=== PATIENT | female | born 1995 | race Two or more races ===

== ENCOUNTER 2025-05-23 14:17 | Outpatient (CLI) | payer OTHER, SELFPAY ==
--- OUTSIDE RECORDS SUMMARY | 2025-05-23 14:52 | XMS_ITS | Clinical Summary ---
Author Organization [facility] Address [facility] [place] [address] Care Team Providers Care Relations Mgr Name Role Phone None, Provider MD Primary Care Provider Unavaila ble None, Provider MD Unavailable Unavailable Allergies No known active allergies Medications VITAMINS 28-0.8 MG tablet Take 1 tablet by mouth daily. 06/23/2022 Active sertraline (ZOLOFT) 50 MG tablet Take 1 tablet (50 mg total) by mouth every morning. 06/23/2022 Active Active Problems Problem Noted Date Diagnosed Date care following vaginal delivery 03/03 Vacuum-assisted vaginal delivery 09/20/2022 Vomiting or nausea of 08/24/2022 Resolved Problems Problem Noted Date Diagnosed Date Resolved Date 38 weeks gestation of 03/03/2024 03/05/2024 09/18/2022 09/20/2022 Immunizations Immunization Administration Dates Next Due Tdap (Boostrix) 03/05/2024 Family History Medical History Relation Comments None Father None Mother Relation Status Comments Father Alive Mother Alive Social History Tobacco Use Types Packs/Day Years Used Date Smoking Tobacco: Former Smokeless Tobacco: Never Tobacco Cessation:Counseling Given: Not Answered Alcohol Use Standard Drinks/Week Comments Not Currently 0 (1 standard drink = 0.6 oz pur e alcohol) B1300 Health Literacy Answer Date Recor ded How often do you need to hav e someone help you when you read instructions, pamphlets, or other written material from your doctor or pharmacy? Never 03/03/2024 [facility] Utilities Answer Date Recorded In the past 12 months has e onlinetours, [facility], oil, or water Tins[employer]ly threatened to shut off services in your home? No 03/03/2024 Humiliation, Afraid, Rape, and Kick questionnair e Answer Date Recorded Within the last year, have y ou been afraid of your partner or ex-partner? No 03/03/2024 Within the last year, have y ou been humiliated or emotionally abused in other ways by your partner or ex-partner? No Within the last year, have y ou been kicked, hit, slapped, or otherwise physically hurt by your partner or ex-partner? No 03/03/2024 Within the last year, have y ou been raped or forced to have any kind of sexual activity by your partner or ex-partner? No 03/03/2024 Social Connection and Isolation Panel Answer Date Recorded In a typical week, how many times do you talk on the phone with family, friends, or neighbors? More than three times a week 03/03/2024 How often do you get togethe r with friends or relatives? More than three times a week 03/03/2024 How often do you attend chur ch or hinduism services? Never 03/03/2024 Do you belong to any clubs o r organizations such as roman catholic groups, unions, fraternal or athletic groups, or school groups? No 03/03/2024 How often do you attend meet ings of the clubs or organizations you belong to? Never 03/03/2024 Are you , , di vorced, , never , or living with a partner? Never 03/03/2024 AUDIT-C Answer Date Recorded Q1: How often do you have a drink containing alc ohol? 2-4 times a month 03/03/2024 Q2: How many drinks containi ng alcohol do you have on a typical day when you are drinking? 3 or 4 03/03/2024 Q3: How often do you have si x or more drinks on one occasion? Less than monthly 03/03/2024 Overall Financial Resource Strain (CARDIA) Answe r Date Recorded How hard is it for you to pa y for the very basics like food, housing, medical care, and heating? Not hard at all 03/03/2024 PHQ-2 Answer Date Recorded Patient Health Questionnaire-2 Score 0 03/03/2024 [facility] - Occupational Stress Questionnaire Answer Date Recorded Do you feel stress - tense, restless, nervous, or anxious, or unable to sleep at night because your mind is troubled all the time - these days? To some extent 03/03/2024 Exercise Vital Sign Answer Date Recorde d On average, how many days pe r week do you engage in moderate to strenuous exercise (like a brisk walk)? 3 days 03/03/2024 On average, how many minutes do you engage in exercise at this level? 30 min 03/03/2024 Hunger Vital Sign Answer Date Recorded Within the past 12 months, y ou worried that your food would run out before you got the money to buy more. Never true 03/03/20 24 Within the past 12 months, t he food you bought just didn't last and you didn't have money to get more. Never true 03/03/2024 PRAPARE - Transportation Answer Date Re corded In the past 12 months, has l ack of transportation kept you from medical appointments or from getting medications? No 02/22 In the past 12 months, has l ack of transportation kept you from meetings, work, or from getting things needed for daily living? No 03/03/2024 Housing Stability Vital Sign Answer Ravi e Recorded In the last 12 months, was t here a time when you were not able to pay the mortgage or rent on time? No 03/03/2024 In the past 12 months, how m any times have you moved where you were living? 3 03/03/2024 At any time in the past 12 m [facility], were you homeless or living in a custodial (including now)? No 03/03/2024 Depression Answer Date Recor ded Last EPDS Total Score 8 03/04/2024 Last EPDS Self Harm Result Unrecognized value Comments No Sex and Gender Information Value Date Recorded Sex Assigned at Not on file Legal Sex Female 4:09 PM CDT Gender Identity Not on file Sexual Orientation Bisexual 01/17/2024 8: 17 AM CDT Last Filed Vital Signs Vital Sign Reading Time Taken Comments Blood Pressure 112/74 03/05/2024 8:08 AM CDT Pulse 75 03/05/2024 8:08 AM CDT Temperature 36.3 C (97.3 F) 03/05/2024 8:08 AM CDT Respiratory Rate 16 03/05/2024 8:08 AM CDT Oxygen Saturation 100% 03/05/2024 8:08 AM CDT Inhaled Oxygen Concentration - - Weight 68 kg (150 lb) 03/03/2024 6:05 AM CDT Height 160 cm (5' 3) 03/03/2024 6:05 AM CDT Body Mass Index 26.57 03/03/2024 6:05 AM CDT Plan of Treatment Health Maintenance Due Date Last Done Comments Annual Physical 2000 Hepatitis C 2015 HPV Vaccines (1 - 3-dose SCDM series) 2024 COVID-19 Vaccine ( season) 2025 Influenza Adult (#1) 2025 06/19/2018, 05/29/2012, 04/23/2011, Additional history exists Cervical Cancer Screening Pap Smear (Age 21 to 29) Every 3 Years 09/19/2026 09/19/2023 Cervical Cancer Screening 09/19/2026 DTaP, Tdap and Td Vaccines (9 - Td or Tdap) 03/05/2034 03/05/2024, 04/17/2019, 03/10/2009, Additional history exists Hepatitis B Vaccines Completed 1997, 1997, 1997 Hepatitis A Vaccines Completed 11/24/2009, 03/10/2009, 05/07/2003 Meningococcal Vaccine Completed 04/19/2014, 008 Meningococcal B Vaccine Aged Out No l onger eligible based on patient's age to complete this topic Pneumococcal Vaccine: Pediatrics (0 to 5 Years) and At-Risk Patients (6 to 49 Years) Aged Out No longer eligible based on patient's age to complete this topic RSV Immunizations Under 20 Months Aged Out No longer eligible based on patient's age to complete this topic Insurance [employer] Advance Directives * Full Code (Latest Code Status on File) Date Activated Date Inactivated Comments 03/03/2024 5:27 AM 03/03/2024 7:08 PM * Full Code Date Activated Date Inactivated Comments 09/18/2022 12:20 AM 09/20/2022 4:44 PM Care Teams Relations Mgr Relationship Specialty Start Date End Date None, ProviderMD PCP - General UNKNOWN PHYSICIAN SPECIALTY 07/05/22 None, MD Aline 07/05/22
--- OUTSIDE RECORDS SUMMARY | 2025-05-23 14:52 | XMS_ITS | Clinical Summary ---
Author Organization [facility] Address [address] [place] [address] Care Team Providers Care Clarifying Plant Operator Name Role Phone Zafar Weston MD Primary Care Provider [phone] Source Comments [facility],non-owned Affiliates and Associated Physician Practices is amultiple site organization consisting of ambulatory clinics and hospital sitesin [place], [place], [place] and [place]. This disclosure is being madepursuant to the Care Everywhere program and may not contain all information available regarding this patient. Last updated 18.[facility] Allergies No known active allergies Medications * Be aware that medications may not be up to date on this document. Alwaysverify current medications with the patient. cetirizine (ZYRTEC) 10 MG tabletIndications :Rash and other nonspecific skin eruption Take 10-40 mg daily. 30 DS 120 tablet 3 05/18/2021 Active Active Problems Problem Noted Date Diagnosed Date Rash and other nonspecific skin eruption 020 Immunizations Immunization Administration Dates Next Due DTP 1997 DTP/HIB 1997 DTaP VACCINE IM (6wk-6yrs) 08/24/2001,,1997, 8 HEP A PED/ADULT VACCINE 05/07/2003 HEP A PEDS 2 DOSE 11/24/2009,03/10/2009 HEP B VACCINE, PED/ADOL 1997,1997 HIB Hep B 1997 HIB VACCINE 07/30/1998,1997 INFLUENZA VACCINE 06/19/2018, 2,04/23/2011, 3,05/07/2003 MENINGOCOCCAL ACWY (MCV4P) VAC IM 04/19/2014 MENINGOCOCCAL VACCINE 06/04/2008 MMR 08/24/2001,07/30/1998 POLIO IPV 08/24/2001 POLIO OPV 1997,1997,1997 TD VACCINE 03/10/2009 TDAP (7yrs+) 04/17/2019,03/10/2009 VARICELLA 03/13/2009,08/24/2001 Family History Relation Name Status Comments Brother 1 25 Alive Brother 2 16 Alive Father 41 Alive Maternal Grandfather 61 Alive Maternal Grandmother 63 Alive Mother 41 Alive Paternal Grandfather 74 Alive Paternal Grandmother 66 Alive Social History Tobacco Use Types Packs/Day Years Used Date Smoking Tobacco: Former Cigarettes 0.5 4 1 09/14/2015 - 07/14/2020 Smokeless Tobacco: Never Tobacco Cessation:Counseling Given: Yes Alcohol Use Standard Drinks/Week Comments Yes 4 (1 standard drink = 0.6 oz pur e alcohol) SOCIALLY Comments No Sex and Gender Information Value Date Recorded Sex Assigned at Female 03/26/2022 11:22 PM CDT 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 Gender Identity Female 03/26/2022 11:22 PM CDT Sexual Orientation Bisexual 03/26/2022 11 :22 PM CDT Last Filed Vital Signs Vital Sign Reading Time Taken Comments Blood Pressure 108/73 03/09/2021 10:48 AM CDT Pulse 82 03/09/2021 10:48 AM CDT Temperature 37 C (98.6 F) 03/09/2021 10:48 AM CDT Respiratory Rate 16 03/09/2021 10:48 AM CDT Oxygen Saturation 99% 10/20/2020 11:28 AM CDT Inhaled Oxygen Concentration - - Weight 55.6 kg (122 lb 9.6 oz) 03/09/2021 10:48 AM CDT Height 160 cm (5' 3) 03/09/2021 10:48 AM CDT Body Mass Index 21.72 03/09/2021 10:48 AM CDT Plan of Treatment Health Maintenance Due Date Last Done Comments HIV SCREENING 2012 HEPATITIS C SCREENING 03/23/2015 HPV VACCINE (1 - 3-dose SCDM series) 2024 DEPRESSION SCREENING 07/25/2024 COVID-19 VACCINE ( - 2023- season) 2025 INFLUENZA VACCINE (#1) 2025 8, 05/29/2012, 04/23/2011, Additional history exists DTAP/TDAP/TD VACCINES (9 - Td or Tdap) 04/17/2029 04/17/2019, 03/10/2009, 03/10/2009, Additional history exists ZOSTER VACCINE (1 of 2) 2047 HEPATITIS B VACCINE Completed 1997, 1997, 1997 HIB VACCINE Completed 07/30/1998, 09/22, 1997, Additional history exists MENINGOCOCCAL GROUPS A/C/Y/W VACCINE Completed 04/19/2014, 06/04/2008 MENINGOCOCCAL (Group B) VACCINE SHARED DECISION-MAKING Aged Out No longer eligible based on patient's age to complete this topic PNEUMOCOCCAL VACCINE Aged Out No long er eligible based on patient's age to complete this topic Insurance [facility] [employer] [facility] Care Address: [id number] [place] [phone] [facility] Care Address: [address] [address] [facility] Care Teams Clarifying Plant Operator Relationship Specialty Start Date End Date Zafar Weston MD [address] [place] [address] PCP - General 01/28/20
--- OUTSIDE RECORDS SUMMARY | 2025-05-23 14:53 | XMS_ITS | Data Portability ---
Author Organization [employer] , [facility] Address [address] [place] [address] Assessment No assessment recorded. Plan of Treatment Reminders Order Date Submit Date Provider Last Modified By Organization Details Last Modified Time Details Appointments None recorde d. Lab hemoglo bin A1c, QN, blood 2023 024 [facility], [address] [place] [address], [address], 4 11:02:54 varicel la-zost er igg Ab screen, serum 2023 024 [employer] [facility], [address], [address], [place], [address], 4 11:02:54 hemoglo binopat hy profile , blood 2023 024 [employer] [facility], [address] , [address], [place], [address], 4 11:02:54 abo group + rh type, blood 2023 024 [employer] [facility], [address] [place], [address], 4 13:20:41 CBC w/ auto diff 2023 024 [facility], [address] [place], [address], 4 13:20:42 drug of abuse panel, urine [id number] [place], [address] [place], [address], 4 10:16:56 obstetr ic screen + HIV, serum or blood [id number] [place], [address] [place], [address], 4 10:16:56 pregnan cy test, urine 2023 024 ro [facility], [address] [place], [address], 4 14:51:54 bacteri al vaginos is + vaginit is panel, vaginal 2022 023 [facility] [employer] [place], [address] [place], [address], 3 15:01:04 unliste d lab - STD screeni ng ([facility]) 2022 023 [facility] [employer] [place], [address] [place], [address], 3 12:24:29 pap, LB 2022 023 [employer] [facility], [address] [facility], [place], [address], 3 11:14:39 HPV E6+E7 mRNA, qualita tive PCR, cervix 2022 023 [employer] [place], [address] [place], [address], 3 16:54:51 Referral None recorde d. Procedures None recorde d. Surgeries None recorde d. Imaging US, transva ginal 2023 024 [id number] Not available 16:32:10 Medication Orders ondanse beto HCl 4 mg tablet 2023 024 [id number], [address], [place], [place], [id number], 14:59:34 Patient TargetsNo targets recorded. Patient Instructions Encounter Date Encounter Id Patient Instructions Last Modified By Organization Details Last Modified Time 06/21/2023 [id number] body mass index: care instructions jarad Not available 06/21/2023 15:29:18 learning about control jarad Not available 06/21/2023 15:29:18 Reason for Referral None Reported. Results Created Date Observation Date Name Description Value Unit Range Abnormal Flag Note LastModifiedBy Organization Detail LastModifiedTime 10/16/1910/15/2022 (50G) 1HR - GLUCO SE ZORAIDA ANCE TEST, GESTA TERESA L SCREE N (50g) 1HR - glucose tolerance test, gestational screen Specim en not rec'd to [facility] Not Available [facility] [address] [place], [address], 10/15/2022 17:14:44 10/16/19 23 10/15/2022 CBC (INCL UDES DIFF/ PLT) CBC (includes diff/plt) Specim en not rec'd to [facility] Not Available [facility] [address] [place], [address], 10/15/2022 17:14:54 10/16/19 23 10/15/2022 OB 28W (SYPH OB 28W (syph Specim en not rec'd to [facility] Not Available [facility] [address] [place], [address], 10/15/2022 17:15:00 08/24/19 23 08/24/2022 UA REFLE X TO CULTU RE specimen type URINE CLEAN CATCH Not Available [facility] (Lab) [address] [facility], [place], [address], 08/24/2022 19:44:52 08/24/1908/24/2022 UA REFLE X TO CULTU RE color LIGHT YELLOW Not Available [facility] (Lab) [place], [address], 08/24/2022 19:44:52 08/24/19 23 08/24/2022 UA REFLE X TO CULTU RE clarity CLEAR Not Available [facility] (Lab) [address] [place], [address], 08/24/2022 19:44:52 08/24/1908/24/2022 UA REFLE X TO CULTU RE specific gravity 1.008 1.001- 1.030 Not Available [facility] (Lab) [address] [facility], [place], [address], 08/24/2022 19:44:52 08/24/19 23 08/24/2022 UA REFLE X TO CULTU RE pH, urine 7.0 5.0-9. 0 Not Available [facility] (Lab) [place], [address], 08/24/2022 19:44:52 08/24/1908/24/2022 UA REFLE X TO CULTU RE leukocytes 25 neg abnormal Not Available [facility] (Lab) [place], [address], 08/24/2022 19:44:52 08/24/19 23 08/24/2022 UA REFLE X TO CULTU RE nitrite NEGATI VE neg normal Not Available [facility] (Lab) [address] [place], [address], 08/24/2022 19:44:52 08/24/19 23 08/24/2022 UA REFLE X TO CULTU RE protein NEGATI VE mg/dL <30 Not Available [facility] (Lab) [address], [place], [address], 08/24/2022 19:44:52 08/24/19 23 08/24/2022 UA REFLE X TO CULTU RE glucose NORMAL mg/dL norm normal Not Available [facility] (Lab) [place], [address], 08/24/2022 19:44:52 08/24/19 23 08/24/2022 UA REFLE X TO CULTU RE ketone NEGATI VE mg/dL neg normal Not Available [facility] (Lab) [place], [address], 08/24/2022 19:44:52 08/24/19 23 08/24/2022 UA REFLE X TO CULTU RE urobilinogen NORMAL mg/dL norm normal Not Available [facility] (Lab) [address], [place], [address], 08/24/2022 19:44:52 08/24/1908/24/2022 UA REFLE X TO CULTU RE bilirubin NEGATI VE mg/dL neg normal Not Available [facility] (Lab) [place], [address], 08/24/2022 19:44:52 08/24/1908/24/2022 UA REFLE X TO CULTU RE blood NEGATI VE neg normal Not Available [facility] (Lab) [place], [address], 08/24/2022 19:44:52 08/24/19 23 08/24/2022 UA REFLE X TO CULTU RE culture indicated SPECIM EN SETUP FOR CULTUR E Not Available [facility] (Lab) [place], [address], 08/24/2022 19:44:52 08/24/19 23 08/24/2022 UA REFLE X TO CULTU RE WBC 1 /hpf <6 Not Available [facility] (Lab) [place], [address], 08/24/2022 19:44:52 08/24/19 23 08/24/2022 UA REFLE X TO CULTU RE RBC 1 /hpf <6 Not Available [facility] (Lab) [place], [address], 08/24/2022 19:44:52 08/24/19 23 08/24/2022 UA REFLE X TO CULTU RE squamous epithelial RARE /hpf Not Available [facility] (Lab) [place], [address], 08/24/2022 19:44:52 08/24/19 23 08/24/2022 DRUGS OF ABUSE PANEL , URINE amphetamines , urine NEGATI VE neg Not Available [facility] (Lab) [place], [address], 08/24/2022 19:51:22 08/24/19 23 08/24/2022 DRUGS OF ABUSE PANEL , URINE barbituates, urine NEGATI VE neg Not Available [facility] (Lab) [place], [address], 08/24/2022 19:51:22 08/24/19 23 08/24/2022 DRUGS OF ABUSE PANEL , URINE benzodiazapi zayra, urine NEGATI VE neg Not Available [facility] (Lab) [place], [address], 08/24/2022 19:51:22 08/24/19 23 08/24/2022 DRUGS OF ABUSE PANEL , URINE cannabinoids /THC, urine POSITI VE neg abnormal Not Available [facility] (Lab) [place], [address], 08/24/2022 19:51:22 08/24/19 23 08/24/2022 DRUGS OF ABUSE PANEL , URINE cocaine, urine NEGATI VE neg Not Available [facility] (Lab) [address] [facility], [place], [address], 08/24/2022 19:51:22 08/24/19 23 08/24/2022 DRUGS OF ABUSE PANEL , URINE methadone, urine NEGATI VE neg Not Available [facility] (Lab) [place], [address], 08/24/2022 19:51:22 08/24/19 23 08/24/2022 DRUGS OF ABUSE PANEL , URINE opiates, urine NEGATI VE neg Not Available [facility] (Lab) [place], [address], 08/24/2022 19:51:22 08/24/19 23 08/24/2022 DRUGS OF ABUSE PANEL , URINE phencyclidin es, urine NEGATI VE neg NOTE: RESUL TS OF THIS DRUG SCREE N SHOUL D BE USED FOR MEDIC AL PURPO SES ONLY AND NOT FOR LEGAL OR EMPLO YMENT PURPO SES. POSIT LEX RESUL TS ARE NOT CONFI RMED. MEDIC ATION S CONTA INING EPHED RINE MAY CAUSE FALSE POSIT LEX AMPHE TAMIN E CALL [phone], LAB, TO REQUE ST CONFI RMATI ON TESTI NG. IF CREAT ININE IS <40 mg/dL . RECOL LECTI ON IS SUGGE STED. AMPHE TAMIN E- 500 NG/ML THERESA TURAT E- 200 NG/ML BENZO DIAZE PINES - 200 NG/ML THC- 50 NG/ML COCAI NE- 150 NG/ML METHA DONE- 300 NG/ML OPIAT E- 300 MG/ML PCP- 25 NG/ML Not Available [facility] (Lab) [address] [place], [address], 08/24/2022 19:51:22 08/24/19 23 08/24/2022 DRUGS OF ABUSE PANEL , URINE creatinine, urine 34.3 mg/dL 28-217 Not Available [facility] (Lab) [place], [address], 08/24/2022 19:51:22 08/24/19 23 08/24/2022 COMPR EHENS LEX METAB OLIC PANEL glucose 69 mg/dL 70-99 low Not Available [facility] (Lab) [place], [address], 08/24/2022 20:11:27 08/24/19 23 08/24/2022 COMPR EHENS LEX METAB OLIC PANEL BUN 9 mg/dL 7-18 Not Available [facility] (Lab) [place], [address], 08/24/2022 20:11:27 08/24/19 23 08/24/2022 COMPR EHENS LEX METAB OLIC PANEL creatinine 0.54 mg/dL 0.55-1 .02 low Not Available [facility] (Lab) [address] [place], [address], 08/24/2022 20:11:27 08/24/19 23 08/24/2022 COMPR EHENS LEX METAB OLIC PANEL sodium 136 mmol/ L 136-14 5 Not Available [facility] (Lab) [address] [facility], [place], [address], 08/24/2022 20:11:27 08/24/19 23 08/24/2022 COMPR EHENS LEX METAB OLIC PANEL potassium 3.5 mmol/ L 3.5-5. 1 Not Available [facility] (Lab) [place], [address], 08/24/2022 20:11:27 08/24/19 23 08/24/2022 COMPR EHENS LEX METAB OLIC PANEL chloride 108 mmol/ L 100-10 8 Not Available [facility] (Lab) [address], [place], [address], 08/24/2022 20:11:27 08/24/19 23 08/24/2022 COMPR EHENS LEX METAB OLIC PANEL total CO2 21.7 mmol/ L 21-32 Not Available [facility] (Lab) [place], [address], 08/24/2022 20:11:27 08/24/19 23 08/24/2022 COMPR EHENS LEX METAB OLIC PANEL calcium 8.9 mg/dL 8.5-10 .1 Not Available [facility] (Lab) [place], [address], 08/24/2022 20:11:27 08/24/19 23 08/24/2022 COMPR EHENS LEX METAB OLIC PANEL total bilirubin 0.3 mg/dL 0.2-1. 2 THIS ASSAY IS NOT RECOM KERI D FOR PATIE NTS UNDER GOING TREAT MENT WITH ELTRO MBOPA G DUE TO THE POTEN TIAL FOR FALSE LY ELEVA JULIAN RESUL TS. Not Available [facility] (Lab) [place], [address], 08/24/2022 20:11:27 08/24/19 23 08/24/2022 COMPR EHENS LEX METAB OLIC PANEL total protein 7.2 g/dL 6.4-8. 2 Not Available [facility] (Lab) [address] [facility], [place], [address], 08/24/2022 20:11:27 08/24/19 23 08/24/2022 COMPR EHENS LEX METAB OLIC PANEL albumin 2.9 g/dL 3.4-5. 0 low Not Available [facility] (Lab) [address] [facility], [place], [address], 08/24/2022 20:11:27 08/24/19 23 08/24/2022 COMPR EHENS LEX METAB OLIC PANEL AST 20 U/L 15-37 Not Available [facility] (Lab) [address] [facility], [place], [address], 08/24/2022 20:11:27 08/24/19 23 08/24/2022 COMPR EHENS LEX METAB OLIC PANEL ALT 18 U/L 14-55 Not Available [facility] (Lab) [place], [address], 08/24/2022 20:11:27 08/24/19 23 08/24/2022 COMPR EHENS LEX METAB OLIC PANEL alk phosphatase 183 U/L 50-136 high Not Available [facility] (Lab) [place], [address], 08/24/2022 20:11:27 08/24/19 23 08/24/2022 COMPR EHENS LEX METAB OLIC PANEL anion gap 6.3 mmol/ L 5-15 Not Available [facility] (Lab) [place], [address], 08/24/2022 20:11:27 08/24/19 23 08/24/2022 COMPR EHENS LEX METAB OLIC PANEL BUN creatinine ratio 16.5 6-26 Not Available [facility] (Lab) [place], [address], 08/24/2022 20:11:27 08/24/19 23 08/24/2022 COMPR EHENS LEX METAB OLIC PANEL A:g ratio 0.7 ratio 1.0-2. 0 low Not Available [facility] (Lab) [place], [address], 08/24/2022 20:11:27 08/24/19 23 08/24/2022 COMPR EHENS LEX METAB OLIC PANEL est GFR >90 mL/mi n/1.7 3_M2 >90 NOTE: eGFR is not calcu lated for patie nts <18 years of age. This is an estim ated GFR calcu latio n using the new CKD EPI creat inine equat ion witho ut race and so does not requi re a corre ction facto r for race. This estim ated GFR shoul d not be used for calcu latin g drug doses . Not Available [facility] (Lab) [place], [address], 08/24/2022 20:11:27 08/24/19 23 08/24/2022 URINE CULTU RE specimen description URINE CLEAN CATCH Not Available [facility] (Lab) [place], [address], 08/26/2022 08:47:12 08/24/1908/24/2022 URINE CULTU RE special requests NO SPECIA L REQUES T Not Available [facility] (Lab) [place], [address], 08/26/2022 08:47:12 08/24/19 23 08/26/2022 URINE CULTU RE culture POLYM ICROB IAL GROWT H CONSI STENT WITH DENISE L GENIT AL LUIS . SUSCE PTIBI LITIE S NOT ROUTI JEVON PERFO RMED. Not Available [facility] (Lab) [place], [address], 08/26/2022 08:47:12 08/24/19 23 08/26/2022 URINE CULTU RE report status FINAL 2022 Not Available [facility] (Lab) [address] [place], [address], 08/26/2022 08:47:12 08/30/19 23 08/30/2022 UA REFLE X TO MICRO specimen type URINE CLEAN CATCH Not Available [facility] (Lab) [address] [place], [address], 08/30/2022 18:34:42 08/30/19 23 08/30/2022 UA REFLE X TO MICRO color LIGHT YELLOW Not Available [facility] (Lab) [address] [place], [address], 08/30/2022 18:34:42 08/30/19 23 08/30/2022 UA REFLE X TO MICRO clarity CLEAR Not Available [facility] (Lab) [place], [address], 08/30/2022 18:34:42 08/30/19 23 08/30/2022 UA REFLE X TO MICRO specific gravity 1.011 1.001- 1.030 Not Available [facility] (Lab) [place], [address], 08/30/2022 18:34:42 08/30/19 23 08/30/2022 UA REFLE X TO MICRO pH, urine 7.5 5.0-9. 0 Not Available [facility] (Lab) [place], [address], 08/30/2022 18:34:42 08/30/19 23 08/30/2022 UA REFLE X TO MICRO leukocytes NEGATI VE neg Not Available [facility] (Lab) [place], [address], 08/30/2022 18:34:42 08/30/19 23 08/30/2022 UA REFLE X TO MICRO nitrite NEGATI VE neg Not Available [facility] (Lab) [place], [address], 08/30/2022 18:34:42 08/30/19 23 08/30/2022 UA REFLE X TO MICRO protein NEGATI VE mg/dL <30 Not Available [facility] (Lab) [place], [address], 08/30/2022 18:34:42 08/30/19 23 08/30/2022 UA REFLE X TO MICRO glucose NORMAL mg/dL norm Not Available [facility] (Lab) [place], [address], 08/30/2022 18:34:42 08/30/19 23 08/30/2022 UA REFLE X TO MICRO ketone NEGATI VE mg/dL neg Not Available [facility] (Lab) [place], [address], 08/30/2022 18:34:42 08/30/19 23 08/30/2022 UA REFLE X TO MICRO urobilinogen NORMAL mg/dL norm Not Available [facility] (Lab) [place], [address], 08/30/2022 18:34:42 08/30/19 23 08/30/2022 UA REFLE X TO MICRO bilirubin NEGATI VE mg/dL neg Not Available [facility] (Lab) [place], [address], 08/30/2022 18:34:42 08/30/19 23 08/30/2022 UA REFLE X TO MICRO blood NEGATI VE neg Not Available [facility] (Lab) [place], [address], 08/30/2022 18:34:42 09/01/19 23 09/05/2022 STREP TOCOC CUS, GROUP B CULTU RE streptococcu s, group B culture SEE NOTE STREP TOCOC CUS, GROUP B CULTU RE Micro Numbe r: [id number] Test Statu s: Final Speci men Sourc e: Not given Speci men Quali ty: Adequ ate Resul t: No group B Strep tococ cus isola julian Note per CDC guide lines optim al recov babatunde is achie shantelle by swabb ing both the lower vagin a and rectu m (thro ugh the anal sphin cter) . Not Available [facility] [address], [place], [address], 09/05/2022 10:09:49 09/17/19 23 09/28/2022 JOSEPH SURGI YOSEF PATHO LOGY path [facility] [address] [facility] [place] [address] Phone : [phone] Fax: Depar tment of Patho logy Patho logy Repor t SURGI YOSEF FINAL REPOR T Patie nt Name: RICARDO RIZZO Formerly [facility] cessi on#: [id number] [phone] [id number] (Age: 27) Locat ion: [facility] QUYNH Gende r: F Colle cted Date: 2022 Med Rec #: [id number] Date Recei shantelle: 2022 Date Repor julian: 023 Provi ayad: DEBBIE Knox MD Speci men(s ) Place nta and Umbil ical Cord Final Patho logic Diagn osis PLACE NTA AND UMBIL ICAL CORD, 38 WEEKS AND 6 DAYS; DELIV BABATUNDE: -[address] NTA, 25-50 TH PERCE NTILE -CHOR IONIC VILLI CONSI STENT WITH GESTA TERESA L AGE -FOCA L VILLI TIS OF UNKNO WN ETIOL OGY -MILD ACUTE CHORI OAMNI ONITI S -UNRE MARKA BLE TRIVA SCULA R UMBIL ICAL CORD Margie ctron icall y Linda d Out YANA Carr MD Patho logis t [facility]:i fh Micro scopi c Descr iptio n: Micro scopi c exami natio n is perfo rmed, and the findi ngs suppo rt the final diagn osis. Clini yosef Histo ry Chori o, termi nal mecon ium, mater nal temp of 100.0 F Gross Descr iptio n Recei shantelle is a singl e forma juan-f illed conta iner label ed with the patie nt's name (Rere Wu son), date of ( 7) (rocio ectio n time 09/20 at 1204) and addit ional ly label ed plac enta. The speci men consi sts of a singl eton place nta, measu ring 16.0 x 15.5 x 3.5 cm with an eccen trica lly inser julian umbil ical cord, that is 3.5 cm from the disc edge and measu res 32.0 cm in lengt h with a diame ter up to 1.6 cm. Secti oning of the cord revea ls three -vess els and there are no ident ifiab le true or false knots prese nt. The membr anes are purpl e-zimmerman with sligh t green -zimmerman disco lorat ion and have trevon nal inser tion. The surfa ce is purpl e-zimmerman with sligh t green -zimmerman disco lorat ion and has denise l vascu latur e. The mater nal surfa ce is red-t an with intac t cotyl edons . The jacky ed disc weigh s 437 grams . Secti oning of the disc revea ls a red-t an homog enous cut surfa ce. Repre senta tive secti ons are submi tted as follo ws: 1 - Membr ane roll 2 - Repre senta tive cord 3-6 - Repre senta tive full thick ness place ntal disc (cont iguou s secti ons in casse ttes 5-6) :[facility] Fee Code( s): 46267 Not Available [facility] (Lab) [place], [address], 09/28/2022 15:56:31 09/18/19 23 09/18/2022 UA REFLE X TO MICRO specimen type URINE CLEAN CATCH Not Available [facility] (Lab) [place], [address], 09/18/2022 02:15:19 09/18/19 23 09/18/2022 UA REFLE X TO MICRO color LIGHT YELLOW Not Available [facility] (Lab) [place], [address], 09/18/2022 02:15:19 09/18/19 23 09/18/2022 UA REFLE X TO MICRO clarity CLEAR Not Available [facility] (Lab) [place], [address], 09/18/2022 02:15:19 09/18/19 23 09/18/2022 UA REFLE X TO MICRO specific gravity 1.019 1.001- 1.030 Not Available [facility] (Lab) [place], [address], 09/18/2022 02:15:19 09/18/19 23 09/18/2022 UA REFLE X TO MICRO pH, urine 7.5 5.0-9. 0 Not Available [facility] (Lab) [place], [address], 09/18/2022 02:15:19 09/18/19 23 09/18/2022 UA REFLE X TO MICRO leukocytes NEGATI VE neg Not Available [facility] (Lab) [place], [address], 09/18/2022 02:15:19 09/18/19 23 09/18/2022 UA REFLE X TO MICRO nitrite NEGATI VE neg Not Available [facility] (Lab) [place], [address], 09/18/2022 02:15:19 09/18/19 23 09/18/2022 UA REFLE X TO MICRO protein NEGATI VE mg/dL <30 Not Available [facility] (Lab) [place], [address], 09/18/2022 02:15:19 09/18/19 23 09/18/2022 UA REFLE X TO MICRO glucose NORMAL mg/dL norm Not Available [facility] (Lab) [place], [address], 09/18/2022 02:15:19 09/18/19 23 09/18/2022 UA REFLE X TO MICRO ketone NEGATI VE mg/dL neg Not Available [facility] (Lab) [place], [address], 09/18/2022 02:15:19 09/18/19 23 09/18/2022 UA REFLE X TO MICRO urobilinogen NORMAL mg/dL norm Not Available [facility] (Lab) [address] [facility], [place], [address], 09/18/2022 02:15:19 09/18/19 23 09/18/2022 UA REFLE X TO MICRO bilirubin NEGATI VE mg/dL neg Not Available [facility] (Lab) [address] [facility], [place], [address], 09/18/2022 02:15:19 09/18/19 23 09/18/2022 UA REFLE X TO MICRO blood NEGATI VE neg Not Available [facility] (Lab) [address] [facility], [place], [address], 09/18/2022 02:15:19 09/18/19 23 09/18/2022 CBC WITH DIFF WBC 11.9 x10'3 /uL 4.5-11 .0 high Not Available [facility] (Lab) [address] [facility], [place], [address], 09/18/2022 02:16:16 09/18/19 23 09/18/2022 CBC WITH DIFF RBC 4.13 x10'6 /uL 4.20-5 .40 low Not Available [facility] (Lab) [address] [facility], [place], [address], 09/18/2022 02:16:16 09/18/19 23 09/18/2022 CBC WITH DIFF hemoglobin 12.4 g/dL 12.0-1 6.0 Not Available [facility] (Lab) [address] [facility], [place], [address], 09/18/2022 02:16:16 09/18/19 23 09/18/2022 CBC WITH DIFF hematocrit 36.7 % 38.0-4 8.0 low Not Available [facility] (Lab) [address], [place], [address], 09/18/2022 02:16:16 09/18/1909/18/2022 CBC WITH DIFF MCV 88.9 fL 81.0-9 9.0 Not Available [facility] (Lab) [address], [place], [address], 09/18/2022 02:16:16 09/18/1909/18/2022 CBC WITH DIFF MCH 30.0 pg 27.0-3 1.0 Not Available [facility] (Lab) [address], [place], [address], 09/18/2022 02:16:16 09/18/1909/18/2022 CBC WITH DIFF MCHC 33.8 g/dL 32.0-3 6.0 Not Available [facility] (Lab) [address], [place], [address], 09/18/2022 02:16:16 09/18/1909/18/2022 CBC WITH DIFF RDW 13.7 % 11.5-1 4.5 Not Available [facility] (Lab) [address], [place], [address], 09/18/2022 02:16:16 09/18/1909/18/2022 CBC WITH DIFF platelet count 285 x10'3 /uL 130-40 0 Not Available [facility] (Lab) [address], [place], [address], 09/18/2022 02:16:16 09/18/1916 0909/18/2022 CBC WITH DIFF MPV 11.1 fL 9.3-12 .2 Not Available [facility] (Lab) [address], [place], [address], 09/18/2022 02:16:16 09/18/19 23 09/18/2022 CBC WITH DIFF diff type AUTOMA JULIAN DIFFER ENTIAL Not Available [facility] (Lab) [address], [place], [address], 09/18/2022 02:16:16 09/18/19 23 09/18/2022 CBC WITH DIFF neutrophils 69.6 % Not Available [facility] (Lab) [address], [place], [address], 09/18/2022 02:16:16 09/18/19 23 09/18/2022 CBC WITH DIFF lymphocytes 20.0 % Not Available [facility] (Lab) [address], [place], [address], 09/18/2022 02:16:16 09/18/19 23 09/18/2022 CBC WITH DIFF monocytes 7.4 % Not Available [facility] (Lab) [address], [place], [address], 09/18/2022 02:16:16 09/18/19 23 09/18/2022 CBC WITH DIFF eosinophils 2.2 % Not Available [facility] (Lab) [address], [place], [address], 09/18/2022 02:16:16 09/18/19 23 09/18/2022 CBC WITH DIFF basophils 0.3 % Not Available [facility] (Lab) [address], [place], [address], 09/18/2022 02:16:16 09/18/19 23 09/18/2022 CBC WITH DIFF immature granulocytes 0.5 % Not Available [facility] (Lab) [address] [facility], [place], [address], 09/18/2022 02:16:16 09/18/19 23 09/18/2022 CBC WITH DIFF abs. neutrophils 8.29 x10'3 /uL 1.80-7 .70 high Not Available [facility] (Lab) [address] [facility], [place], [address], 09/18/2022 02:16:16 09/18/19 23 09/18/2022 CBC WITH DIFF abs. lymphocytes 2.38 x10'3 /uL 1.00-4 .80 Not Available [facility] (Lab) [address] [facility], [place], [address], 09/18/2022 02:16:16 09/18/19 23 09/18/2022 CBC WITH DIFF abs. monocytes 0.88 x10'3 /uL 0.24-0 .86 high Not Available [facility] (Lab) [address] [facility], [place], [address], 09/18/2022 02:16:16 09/18/19 23 09/18/2022 CBC WITH DIFF abs. eosinophils 0.26 x10'3 /uL 0.04-0 .36 Not Available [facility] (Lab) [place], [address], 09/18/2022 02:16:16 09/18/19 23 09/18/2022 CBC WITH DIFF abs. basophils 0.04 x10'3 /uL 0.01-0 .08 Not Available [facility] (Lab) [address], [place], [address], 09/18/2022 02:16:16 09/18/19 23 09/18/2022 CBC WITH DIFF abs. immature grans 0.06 x10'3 /uL 0.00-0 .49 Not Available [facility] (Lab) [place], [address], 09/18/2022 02:16:16 09/18/19 23 09/18/2022 DRUGS OF ABUSE PANEL , URINE amphetamines , urine NEGATI VE neg Not Available [facility] (Lab) [place], [address], 09/18/2022 02:25:39 09/18/19 23 09/18/2022 DRUGS OF ABUSE PANEL , URINE barbituates, urine NEGATI VE neg Not Available [facility] (Lab) One [facility], [place], [address], 09/18/2022 02:25:39 09/18/19 23 09/18/2022 DRUGS OF ABUSE PANEL , URINE benzodiazapi zayra, urine NEGATI VE neg Not Available [facility] (Lab) [place], [address], 09/18/2022 02:25:39 09/18/19 23 09/18/2022 DRUGS OF ABUSE PANEL , URINE cannabinoids /THC, urine POSITI VE neg abnormal Not Available [facility] (Lab) [place], [address], 09/18/2022 02:25:39 09/18/19 23 09/18/2022 DRUGS OF ABUSE PANEL , URINE cocaine, urine NEGATI VE neg Not Available [facility] (Lab) [place], [address], 09/18/2022 02:25:39 09/18/19 23 09/18/2022 DRUGS OF ABUSE PANEL , URINE methadone, urine NEGATI VE neg Not Available [facility] (Lab) [place], [address], 09/18/2022 02:25:39 09/18/19 23 09/18/2022 DRUGS OF ABUSE PANEL , URINE opiates, urine NEGATI VE neg Not Available [facility] (Lab) [place], [address], 09/18/2022 02:25:39 09/18/1909/18/2022 DRUGS OF ABUSE PANEL , URINE phencyclidin es, urine NEGATI VE neg NOTE: RESUL TS OF THIS DRUG SCREE N SHOUL D BE USED FOR MEDIC AL PURPO SES ONLY AND NOT FOR LEGAL OR EMPLO YMENT PURPO SES. POSIT LEX RESUL TS ARE NOT CONFI RMED. MEDIC ATION S CONTA INING EPHED RINE MAY CAUSE FALSE POSIT LEX AMPHE TAMIN E CALL [phone], LAB, TO REQUE ST CONFI RMATI ON TESTI NG. IF CREAT ININE IS <40 mg/dL . RECOL LECTI ON IS SUGGE STED. AMPHE TAMIN E- 500 NG/ML THERESA TURAT E- 200 NG/ML BENZO DIAZE PINES - 200 NG/ML THC- 50 NG/ML COCAI NE- 150 NG/ML METHA DONE- 300 NG/ML OPIAT E- 300 MG/ML PCP- 25 NG/ML Not Available [facility] (Lab) [place], [address], 09/18/2022 02:25:39 09/18/19 23 09/18/2022 DRUGS OF ABUSE PANEL , URINE creatinine, urine 106.0 mg/dL 28-217 Not Available [facility] (Lab) [place], [address], 09/18/2022 02:25:39 09/18/19 23 09/18/2022 TYPE AND SCREE N ABO/Rh(D) O POSITI VE Not Available [facility] (Lab) [address] [facility], [place], [address], 09/18/2022 03:06:34 09/18/19 23 09/18/2022 TYPE AND SCREE N antibody screen NEGATI VE Not Available [facility] (Lab) [address], [place], [address], 09/18/2022 03:06:34 09/18/19 23 09/18/2022 TYPE AND SCREE N xm expiration 2022,2 359 Not Available [facility] (Lab) [place], [address], 09/18/2022 03:06:34 09/19/19 23 09/19/2022 HGB AND HCT hemoglobin 12.9 g/dL 12.0-1 6.0 Not Available [facility] (Lab) [address], [place], [address], 09/19/2022 07:24:25 09/19/19 23 09/19/2022 HGB AND HCT hematocrit 39.4 % 38.0-4 8.0 Not Available [facility] (Lab) [place], [address], 09/19/2022 07:24:25 06/21/20 23 06/22/2023 STD SCREE NOHEMI ([facility] hep BS Ag Non-Re active non-re active normal Not Available [address], [address], 06/22/2023 12:24:29 06/21/20 23 06/22/2023 STD SCREE NOHEMI ([facility] ) hep C Ab Non-Re active non-re active normal Not Available [address], [address], 06/22/2023 12:24:29 06/21/20 23 06/22/2023 STD CAROLYN HARRIS ([facility] ) HIV 1/2 Ag/Ab Non-Re active non-re active normal Not Available [address], [address], 06/22/2023 12:24:29 06/21/20 23 06/22/2023 STD CAROLYN HARRIS ([facility] ) syphilis Ab Non-Re active non-re active normal Not Available [address], [address], 06/22/2023 12:24:29 06/21/20 23 06/22/2023 VAGIN ITIS PLUS STD PANEL bacterial vaginosis BV POS negati ve abnormal Not Available [address], [address], 06/22/2023 15:01:04 06/21/20 23 06/22/2023 VAGIN ITIS PLUS STD PANEL issa species C. spp neg negati ve normal Not Available [address], [address], 06/22/2023 15:01:04 06/21/20 23 06/22/2023 VAGIN ITIS PLUS STD PANEL issa glabrata C. gla neg negati ve normal Not Available [address], [address], 06/22/2023 15:01:04 06/21/20 23 06/22/2023 VAGIN ITIS PLUS STD PANEL trichomonas vaginalis CV/TV TRICH neg negati ve normal Not Available [address], [address], 06/22/2023 15:01:04 06/21/20 23 06/22/2023 VAGIN ITIS PLUS STD PANEL chlamydia trachomatis CT neg negati ve normal This repor t is inten ded for us in clini yosef monit oring and manag ement of [facility]. It is not inten ded for use in medic al-le gal appli catio n. Not Available [facility] [address] [place], [address], 06/22/2023 15:01:04 06/21/20 23 06/22/2023 VAGIN ITIS PLUS STD PANEL neisseria gonorrhoeae GC neg negati ve normal This repor t is inten ded for us in clini yosef monit oring and manag ement of [facility]. It is not inten ded for use in medic al-le gal appli catio n. Not Available [facility] [address] [place], [address], 06/22/2023 15:01:04 06/21/20 23 06/22/2023 HPV HIGH RISK HPV high risk POSITI VE negati ve abnormal The HPV High Risk assay is inten ded for use as co-te sting with cytol ogy and not as a subst itute for regul ar cervi yosef cytol ogy scree nohemi. This assay is not inten ded for use as a scree nohemi devic e for women under age 30 with denise l cervi yosef cytol ogy. Not Available [facility] [address] [place], [address], 06/22/2023 16:54:51 06/21/20 23 06/24/2023 THINP REP TIS PAP clinical information: normal None given Not Available [facility] [address] [address] [place], [address], 06/24/2023 11:14:39 06/21/20 23 06/24/2023 THINP REP TIS PAP LMP: normal NONE GIVEN Not Available [facility] [address] [address] [place], [address], 06/24/2023 11:14:39 06/21/20 23 06/24/2023 THINP REP TIS PAP prev. Pap: normal NONE GIVEN Not Available [facility] [address] [address] [place], [address], 06/24/2023 11:14:39 06/21/20 23 06/24/2023 THINP REP TIS PAP prev. BX: normal NONE GIVEN Not Available [address] [address] [place], [address], 06/24/2023 11:14:39 06/21/20 23 06/24/2023 THINP REP TIS PAP source: normal Cervi x Not Available [address] [address] [place], [address], 06/24/2023 11:14:39 06/21/2006/24/2023 THINP REP TIS PAP statement of adequacy: normal Satis facto ry for evalu ation . Endoc ervic al/tr ansfo rmati on zone compo nent prese nt. Age and/o r menst rual statu s not provi ded Not Available [address] [address] [place], [address], 06/24/2023 11:14:39 06/21/2006/24/2023 THINP REP TIS PAP interpretati on/result: normal Cytol ogy Resul ts: Negat lex for intra epith elial lesio n or malig christopher . Not Available [address] [address] [place], [address], 06/24/2023 11:14:39 06/21/2006/24/2023 THINP REP TIS PAP comment: normal This Pap test has been evalu ated with compu ter evgeny julian techn ology . Not Available [address] [address] [place], [address], 06/24/2023 11:14:39 06/21/20 23 06/24/2023 THINP REP TIS PAP cytotechnolo gist: normal MMW, CT( CP) CT scree nohemi locat ion: [address] [address] [place] [address] Not Available [facility] [address] [place], [address], 06/24/2023 11:14:39 06/21/20 23 06/24/2023 THINP REP TIS PAP comment EXPLA NATOR Y NOTE: The Pap is a scree nhoemi test for cervi yosef cance r. It is not a diagn ostic test and is subje ct to false negat lex and false posit lex resul ts. It is most relia ble when a satis facto ry sampl e, regul minerva obtai chris, is submi tted with relev ant clini yosef findi ngs and histo ry, and when the Pap resul t is evalu ated along with histo vargas and curre nt clini yosef infor matio n. Not Available [facility] [address] [address], [place], [address], 06/24/2023 11:14:39 06/21/20 23 06/24/2023 HPV GENOT YPE HPV 16 Negati ve negati ve normal Not Available [address], [address], 06/25/2023 09:12:30 06/21/20 23 06/24/2023 HPV GENOT YPE HPV 18/45 Negati ve negati ve normal Assay can diffe renti ate HPV 16 from HPV 18 and/o r HPV 45. But canno t diffe renti ate betwe en 18 and 45. Not Available [facility] [address] [place], [address], 06/25/2023 09:12:30 08/04/19 24 08/04/2023 pregn rocco test, urine HCG positi ve Not Available [facility] [address] [place], [address], 08/04/2023 14:26:20 08/04/19 24 08/04/2023 US, trans vagin al No observ ation record ed. [facility] [address], [place], [address], 08/05/2023 12:21:10 Result Notes None recorded. Problems Name Problem SNOMED Code Status Onset Date Resolution Date Notes Provider Name and Address Organization Details Recorded Time Anxiety 36604971 Completed restart sertrali ne 50mg will increase to prior dose of 75mg after one month Analyse Julien null, PA - [facility] 3 11:04:35 Pregnanc y 97502776 Completed O+/RI/NR x3 Anatomy complete , 25%, male Analyse Julien null, PA - [facility] 3 11:04:35 Anxiety 74816925 Active restart sertrali ne 50mg will increase to prior dose of 75mg after one month Lyndsay Collins null, PA - [facility] 4 14:43:56 Pregnanc y 70860524 Completed 12/03/2022 O+/RI/NR x3 Anatomy complete , 25%, male Phoebe Azevedo null, PA - [facility] 5 14:33:48 Vacuum assisted vaginal delivery [id number] 660939 Completed in G1 Suzy Rausch is, [address], [address] , [facility] 4 19:12:48 Nausea 527419629 Completed eRX for Zofran Suzy Rausch is, [address] [place], [address] , [facility] 4 19:12:48 Surveill ance of oral contrace ption done [id number] 9108 Completed 201211/02/2013 Contrace ptive surveill ance, unspecif ied; Location : None Severity : Moderate Progress : Stable Added By: Kailee Banegas Add to Current Problems : NO ProblemS tatus: Resolve Not Available [facility] 1 15:11:09 Abnormal uterine bleeding 22560758865 100 Completed 201311/02/2013 Abnormal uterine bleeding ; Progress : Stable Added By: Denisse Calles Add to Current Problems : NO ProblemS tatus: Resolve Not Available [facility] 2 20:45:55 Candidal vulvovag initis 91568263 Completed 201308/24/2014 Candidal vulvovag initis; Location : None Progress : Stable Added By: Lakia Carl Add to Current Problems : NO ProblemS tatus: Resolve Not Available [facility] 2 20:45:54 Dysuria 69185205 Completed 201308/24/2014 Dysuria; Progress : Stable Added By: Kailee Banegas Add to Current Problems : NO ProblemS tatus: Resolve Not Available [facility] 2 20:45:55 At high risk of sexually transmit julian infectio n 504968136 Completed 201410/03/2014 STD Screenin g; Location : None Severity : Moderate Progress : Stable Added By: Ha Alegre Add to Current Problems : YES ProblemS tatus: Resolve Not Available [facility] 1 15:11:10 Venereal disease screenin g Completed 201410/03/2014 STD Screenin g; Location : None Progress : Stable Added By: Ha Alegre Add to Current Problems : YES ProblemS tatus: Resolve Not Available [facility] 2 20:45:53 Bleeding Completed 201408/08/2015 Abnormal uterine and vaginal bleeding , unspecif ied; Progress : Stable Added By: Lucrecia Hsu Add to Current Problems : NO ProblemS tatus: Resolve Not Available [facility] 2 20:45:54 Postcoit al bleeding 93680878 Completed 201408/08/2015 Post-coi zuri vaginal bleeding ; Progress : Stable Added By: Lucrecia Hsu Add to Current Problems : NO ProblemS tatus: Resolve Not Available [facility] 2 20:45:55 Alopecia 05382502 Completed 201602/15/2020 Loss of hair; Progress : Stable Added By: Shanelle Manzanares Add to Current Problems : NO ProblemS tatus: Resolve Not Available [facility] 2 20:45:54 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 Loss of hair; Location : None Progress : Stable Added By: Shanelle Manzanares Add to Current Problems : YES ProblemS tatus: Current Other specifie d nonscarr ing hair loss; Progress : Stable Added By: Shanelle Manzanares Add to Current Problems : YES ProblemS tatus: Current Not Available [facility] 2 20:45:52 Uses contrace ption 64302412 Completed 201611/02/2016 Contrace ption advice, other method; Location : None Severity : Moderate Progress : Stable Added By: Yolanda Perales Add to Current Problems : NO ProblemS tatus: Resolve Not Available [facility] 1 15:11:10 Procedur e by method Completed 201712/17/2017 Encounte r for ot general cnsl and advice on contrace ption; Progress : Stable Added By: Shanelle Manzanares Add to Current Problems : NO ProblemS tatus: Resolve Not Available [facility] 2 20:45:53 Family planning educatio n done [id number] 9104 Completed 201712/17/2017 Family planning advice; Location : None Severity : Moderate Progress : Stable Added By: Shanelle Manzanares Add to Current Problems : YES ProblemS tatus: Resolve Not Available [facility] 1 15:11:08 Uses depot contrace ption 991246577 Completed 201712/17/2017 Initiati on of Depo Provera contrace ption; Location : None Severity : Moderate Progress : Stable Added By: Mago Penaloza Add to Current Problems : YES ProblemS tatus: Resolve Not Available [facility] 1 15:11:10 Removal of subcutan eous contrace ptive done 71007017548 9100 Completed 201707/20/2018 Removal of subderma l implanta ble contrace ptive; Location : None Severity : Moderate Progress : Stable Added By: Mary Umanzor Add to Current Problems : YES ProblemS tatus: Resolve Removal of subderma l implanta ble contrace ptive; Severity : Moderate Progress : Stable Added By: Sheron Membreno Add to Current Problems : NO ProblemS tatus: Resolve; Start Date : 10/04/19 15 Not Available [facility] 1 15:11:10 Procedur e Completed 201707/20/2018 Encounte r for surveill ance of implanta ble subderma l contrace ptive; Progress : Stable Added By: Mray Umanzor Add to Current Problems : NO ProblemS tatus: Resolve Not Available [facility] 2 20:45:55 Subcutan eous contrace ptive implant present 627983161 Completed 201707/20/2018 Removal of subderma l implanta ble contrace ptive; Location : None Progress : Stable Added By: Mary Umanzor Add to Current Problems : YES ProblemS tatus: Resolve Not Available [facility] 2 20:45:53 Injectio n given 004212686 Completed 201702/15/2020 Follow-u p visit for Depo Provera injectio n; Location : None Severity : Moderate Progress : Stable Added By: Yolanda Perales Add to Current Problems : YES ProblemS tatus: Current Follow-u p visit for Depo Provera injectio n; Severity : Moderate Progress : Stable Added By: Yolanda Perales Add to Current Problems : NO ProblemS tatus: Resolve Not Available [facility] 1 15:11:09 Pregnanc y 93752489 Completed 202310/10/2024 Phoebe Azevedo [facility], [facility] 5 14:33:48 Notes:Follow-up visit for De po Provera injection (V25.49) ; OnsetDate: 01/09/2018; ResolvedDate: 02/15/2020; Progress: Stable Added By: Yolanda Perales Add to Current Problems: NO ProblemStatus: Resolve Family planning advice (V25.09) ; OnsetDate: 10/18/2017; ResolvedDate: 12/17/2017; Progress: Stable Added By: Shanelle Manzanares Add to Current Problems: NO ProblemStatus: Resolve Contraception advice, other method (V25.09) ; OnsetDate: 09/03/2016; ResolvedDate: 11/02/2016; Progress: Stable Added By: Yolanda Perales Add to Current Problems: NO ProblemStatus: Resolve Removal of subdermal implantable contraceptive (V25.43) ; OnsetDate: 10/03/2014; ResolvedDate: 07/05/2015; Progress: Stable Added By: Sheron Long Add to Current Problems: NO ProblemStatus: Resolve Visit for insertion of subdermal contraceptive (Nexplanon) (V25.5) ; OnsetDate: 10/03/2014; ResolvedDate: 07/05/2015; Progress: Stable Added By: Sheron Long Add to Current Problems: NO ProblemStatus: Resolve Problem Notes None recorded. Procedures Surgical History Date Name Laterality Status Provider Name and Address Organization Details Recorded Time 06/21/2023 Date of Last Pap Smear completed [facility] 09/29/2023 11:19:46 Imaging Results None recorded. Procedure Notes None recorded. Medical Equipment None Reported. Allergies No known drug allergies Medications Name Sig Start Date Stop Date Status Note LastModified by Organization Details LastModified Time acetamino phen 325 mg tablet 06/21 completed Not Available Not Available Not Available cetirizin e 10 mg tablet TAKE 1 TO 4 TABLETS BY MOUTH DAILY 02/18 completed Not Available Not Available Not Available ondansetr on HCl 4 mg tablet TAKE 1 TABLET BY MOUTH EVERY 4 TO 6 HOURS active Not Available Not Available No t Available triamcino lone acetonide 0.1 % topical cream Apply a thin film with Nystatin cream to affected area BID 01/27 completed Triamcin olone Acetonid e 0.1% Cream RxNorm: 670696 Allow Substitu tion: True Refill Denied: No Not Available Not Available Not Available estradiol 1 mg tablet 1 po q am 11/02 completed Estradio l 1mg Tablet RxNorm: 522490 Allow Substitu tion: True Refill Denied: No For Problem: Abnormal uterine bleeding Not Available Not Available Not Available nystatin 100,000 unit/gram topical cream Apply a thin film with triamcin olone cream to affected area BID 01/27 completed Nystatin 100,000U /1gm Cream RxNorm: 353231 Allow Substitu tion: True Refill Denied: No Not Available Not Available Not Available sertralin e 25 mg tablet TAKE 1 TABLET BY MOUTH EVERY DAY 06/22 completed Not Available Not Available Not Available hydroxyzi ne HCl 25 mg tablet take 3 tablet (25 mg) by oral route at hs 02/18 completed hydrOXYz ine HCL 25 mg oral tablet RxNorm: 770373 Refill Denied: No Refill DateOccu rred: 02/15/20 Edited by: Jenn Flores ) on 02/15/20 Stopped by: Jenn Flores ) on Not Available Not Available Not Available ibuprofen 600 mg tablet 06/21 completed Not Available Not Available Not Available hydroxyzi ne HCl 10 mg tablet TAKE 1 TABLET BY MOUTH AT BEDTIME 02/18 completed Not Available Not Available Not Available sertralin e 50 mg tablet TAKE 1 AND 1/2 TABLETS BY MOUTH EVERY DAY IN THE MORNING 06/21 completed Not Available Not Available Not Available medroxypr ogesteron e 150 mg/mL intramusc ular suspensio n 150mg/ml every 3 months 01/31 completed medroxyP ROGESTER one 150 mg/mL intramus cular Suspensi on RxNorm: 8137460 Allow Substitu tion: True Refill Denied: No Edited by: Shanelle Dhaliwal) on 02/01/20 Stopped by: Shanelle Dhaliwal) on 02/01/20 Not Available Not Available Not Available metoclopr amide 10 mg tablet active Not Available Not Available No t Available hydroxyzi ne pamoate 25 mg capsule TAKE 1 CAPSULE BY MOUTH EVERY DAY 02/18 completed Not Available Not Available Not Available nitrofura ntoin monohydra te/macroc rystals 100 mg capsule TAKE 1 CAPSULE BY MOUTH TWICE DAILY FOR 7 DAYS 06/21 completed Not Available Not Available Not Available Vitamin C 06/21 completed Not Available Not Available Not Available active Not Available Not Avai lable Not Available Nexplanon 10/18 completed Nexplano n 68mg Implant RxNorm: 7890551 Allow Substitu tion: True Refill Denied: No Refill DateOccu rred: 10/04/19 15 Edited by: ace( Yolanda Perales) on 10/19/19 18 Stopped by: ace( Yolanda Perales) on 10/19/19 18 Not Available Not Available Not Available 28 mg iron-800 mcg tablet TAKE 1 TABLET BY MOUTH EVERY DAY 06/21 completed Not Available Not Available Not Available Vitals Date Recorded Systolic And Diastolic Provider Name and Address Organization Details Last Updated DateTime 08/04/2023 102/58 mm[Hg] Lyndsay Collins PA - [facility] 08/04/2023 14:48:19 Date Recorded Body height Body temperature Body mass index (BMI) Body weight Provider Name and Address Organization Details Last Updated DateTime 08/04/2023 160.02 cm 116.4 [degF] 20.6 kg/m2 65953.15 g Urszula [facility] 08/04/2023 14:31:10 Date Recorded Body weight Provider Name an d Address Organization Details Last Updated DateTime 09/03/2023 66544.892809 g Suzy Ramirez, [facility] [address] [place], [address], [place] [facility] 09/05/2023 19:12:48 Date Recorded Body height Body mass index (BMI) Body temperature Systolic And Diastolic Provider Name and Address Organization Details Last Updated DateTime 09/03/2023 160.02 cm 20.7 kg/m2 97.4 [degF] 118/64 mm[Hg] Urszula [facility] 09/03/2023 11:57:12 Date Recorded Body height Body mass index (BMI) Body weight Body temperature Systolic And Diastolic Provider Name and Address Organization Details Last Updated DateTime 09/09/2022 160.02 cm 27.6 kg/m2 95783.4 0972 g 98 [degF] 110/70 mm[Hg] Brendan Cheek [facility] 14:28:23 Date Recorded Body weight Provider Name an d Address Organization Details Last Updated DateTime 09/16/2022 90932.158599 g Dianne Cruz, [facility] [address] [place], [address], [facility] [employer] [facility] 09/16/2022 16:17:49 Date Recorded Body height Body mass index (BMI) Body temperature Systolic And Diastolic Provider Name and Address Organization Details Last Updated DateTime 09/16/2022 160.02 cm 27.6 kg/m2 98.2 [degF] 116/64 mm[Hg] Lyndsay Collins [facility] [employer] [facility] 09/16/2022 15:55:17 Date Recorded Body height Body mass index (BMI) Body weight Body temperature Systolic And Diastolic Provider Name and Address Organization Details Last Updated DateTime 06/21/2023 160.02 cm 21.4 kg/m2 77271.9 6 g 97.7 [degF] 102/66 mm[Hg] Sylvie Camacho [facility] [employer] IV 14:36:04 Social History Question Answer Notes LastModified by [facility] Details LastModified Time Tobacco Smoking Status Current Every Day Smoker Shanelle Manzanares, AMY [address] [place], [address], [facility] [employer] IV 02/17/2022 09:36:39 Are You Blind Or Do You Have Difficulty Seeing? Yes Information not available 06/21/2023 Are You Deaf Or Do You Have Serious Difficulty Hearing? No Information not available 04/15/2022 What Type Of Diet Are You Following? REGULAR Information not available 04/15/2022 Which Illicit Or Recreational Drugs Have You Used? MJ Use Information not available 02/17/2022 How Many Children Do You Have? 1 Information not available 06/21/2023 What Is Your Relationship Status? Single [email or web address] Information not available 03/18/2022 Are You Sexually Active? Yes [email or web address] Information not available 03/18/2022 Sex: Unknown Functional Status Question Answer Note LastModified by Organizat ion Details LastModified Time Do you use any illicit or recreational drugs? Yes Information not available 02/17/2022 Do you or have you ever used any other forms of tobacco or nicotine? Yes [email or web address] Information not available 08/04/2023 What is your level of alcohol consumption? None Information not available 03/18/2022 Are you currently employed? Yes Information not available 06/21/2023 Do you or have you ever used e-cigarettes or vape? Former user of electronic cigarettes [email or web address] Information not available 03/18/2022 What is your exercise level? Moderate [email or web address] Information not available 03/18/2022 Mental Status None recorded. Family History Relationship Description Onset Age of this Age Resolved Age Notes LastModified by Organization Details LastModified Time Unspecified Relation Depressive disorder Not available 05/26 14:26:54 Maternal Grandmother Malignant neoplasm of breast Not available 05/26 14:26:54 Maternal Grandmother Hypertensive disorder Not available 05/26 14:26:54 Medical History Condition Response Anxiety Disorder Y Depression Y Gynecological History Statement/Question Response Flow Moderate Date of last HPV 06/21/2023 Date of LMP 06/11/2023 HPV Vaccine N Duration of Flow (days) 5 Most Recent Mammogram Current Control Method Age at Menarche 14 Date of Last Colonoscopy Most Recent Bone Density Date of Last Pap Smear 06/21/2023 Obstetrics History GPAL:G 2 P 1 0 0 1 Type Value Full Term 1 Living 1 Total 2 Past Encounters Encounter ID Performer Location Encounter Start Date Encounter Closed Date Diagnosis/Indication Diagnosis SNOMED-CT Code Diagnosis ICD10 Code Diagnosis IMO Codes Diagnosis Note [id number] Suzy wood CNM [facility] [address] [place] [address] 02/18/2022 16:17:21 02/18/2022 17:16:02 [id number] Z33.1 LMP 12/20 =US today 8w4d GOMEZ 3/5N/V Zofran RxNeeds PNV Nausea and vomiting 1693 1999 R11.2 [id number] Suzy wood CNM [facility] [address] [place] [address] 03/18/2022 15:09:38 03/19/2022 11:52:14 Routine care 886039852 Z34.01 Z34.81 O09.511 O09.493 [id number] Suzy wood CNM [facility] [address] [place] [address] 04/15/2022 15:45:44 04/15/2022 16:54:53 [id number] Suzy wood, [facility] [address] [place] [address] 05/25/2022 13:41:32 05/25/2022 15:10:54 screening for malformation 983931485 Z36.3 [id number] Sheron Prajapati, [facility] [address] [place] [address] 06/22/2022 13:40:06 06/28/2022 14:23:12 [id number] Suzy wood, [facility] [address] [place] [address] 07/22/2022 12:24:38 07/22/2022 14:46:16 Routine care 389155165 Z34.03 Z34.83 O09.513 O09.523 Depression screening 171 039302 Z13.31 [id number] Suzy wood, [facility] [address] [place] [address] 08/05/2022 13:57:24 08/06/2022 14:38:25 Routine care 638435493 Z34.03 Z34.83 O09.513 O09.523 Depression screening 171 696426 Z13.31 [id number] Suzy wood, [facility] [address] [place] [address] 08/19/2022 14:56:47 08/19/2022 16:48:27 [id number] Suzy wood, [facility] [address] [place] [address] 09/02/2022 11:52:45 09/02/2022 14:00:49 screening 570438103 Z36.85 Gestation period, 36 weeks 17716842 Z3A.36 [id number] Suzy wood, [facility] [address] [place] [address] 09/09/2022 14:02:43 09/09/2022 15:08:20 [id number] Dianne Cruz, [facility] [address] [place] [address] 09/16/2022 14:55:39 09/16/2022 17:15:49 Normal in primigravida 3231495328 35885 Z34.03 Gestation period, 38 weeks 02507284 Z3A.38 Labor precaution s given. FM counts discussed. F/u in L&D if experienci ng decreased movement, SROM, or regular uterine contractio ns increasing in frequency and/or intensity. [id number] Sheron Prajapati, [facility] [address] [place] [address] 06/21/2023 14:00:19 06/21/2023 17:54:07 Gynecologic examination 06677861 Z01.419 Screening for malignant neoplasm of cervix 441939648 Z12.4 Surveillan ce of contraception 677728938 Z30.40 Depression screening 171 515547 Z13.31 See Intake Screening - PHQ Infection screening 2437 24066 Z11.9 [id number] Suzy wood, [facility] [address] [place] [address] 08/04/2023 14:15:30 08/04/2023 16:32:09 test positive 164984745 Z32.01 LMP 7w5d =03/17 EDDH/O VAVDN/V Zofran Rx Nausea and vomiting 1693 1999 R11.2 [id number] Suzy wood, [facility] [address] [place] [address] 09/03/2023 11:30:43 09/06/2023 10:51:02 Routine care 328359263 Z34.90 screening 2437 99575 Z36.0 declines [facility] Concerns Section Related Observation LastModified by Organization Detai ls LastModified Time None Recorded Concern Status LastModified by Organization Details LastModified Time None Recorded Advance Directives Directive None Recorded Payers Insurance Date Sequence Insurance Name Policy Number Policy Maurer Covered Member ID Maurer Member ID Guarantor Name 03/23/2022 1 [place] Verito Tucker [id number] Verito Tucker 10/19/2023 1 [place] Verito Tucker [id number] Verito Tucker 12/25/2024 1 [facility] (MEDICAID HMO) [id number] Verito Tucker [id number] Verito Tucker Notes Date Note Type Note Provider Name and Address Organization Details Recorded Time 09/09/2022 text/html Pt here for CLEO in third trimester. +FM, denies VB, LOF. Denies KEARNEY, vision changes, RUQ pain, contractions Suzy Ramirez, [facility] [address] [facility], [place], [address], [facility] [employer] 09/09/2022 14:44:10 09/16/2022 text/html ROS as noted in the HPI Verito is here today for a routine OB visit. She is currently at 38.4 weeks gestation. She has no complaints or questions. She is taking vitamins. She has felt movement. She denies the presence of vaginal bleed, leaking fluid, abdominal cramps, nausea, vomiting. Dianne Cruz, [facility] [address] [facility], [place], [address], [facility] [employer] [employer] [facility] 09/16/2022 16:18:14 06/21/2023 text/html Annual GYNReport ed by PatientHistoryFor history, patient reportsno gynecologic complaints.Genitourina ry symptomsFor menstrual cycle, patient reportsnormal menses. For urinary symptoms, patient reportsno hematuriaandno incontinence. For vulva, patient reportsno genital lesion. For vagina, patient reportsnormal vaginal discharge.Breast symptomsFor breast, patient reportsno breast pain,no breast lump, andno nipple discharge.Contraceptio nFor current contraception, patient reportswants to discuss contraceptive options.Endocrine symptomsFor sexual complaints, patient reportsno sexual complaints,no pain during intercourse, andnormal libido. For menopausal symptoms, patient reportsno menopausal symptomsandnormal vaginal lubrication.Psychologi yosef symptomsFor psychological symptoms, patient reportsno depression,no anxiety, andno pmdd.Preventative measuresFor preventive measures, patient reportsencourage self breast examination,encourage regular exercise, andencourage regular mammograms starting age 40.ROS as noted in the HPI Pt had a baby in August and is complaining of increased sweating and body odor ever since. Sheron Prajapati, [facility] [address] [place], [address], [employer] 06/22/2023 10:42:48 08/04/2023 text/html Confir mation VisitReported by PatientHPIFor obstetrics and gynecology, patient reportsno bleeding between periods,lmp: (06/11/2023), 2,para 1 (as of today), heart tones:, andedc (us): (03/17/2024). KEILY Ward [address] [place], [address], [employer] 08/04/2023 15:03:35 09/03/2023 text/html ROS as noted in the HPI Patient is here today for a routine OB visit. She is currently at 12 weeks gestation. vitamins: yes She has not felt movement. She denies any complaints of the presence of vaginal bleed, leaking fluid, abdominal cramps, nausea, vomiting, headache or visual disturbances. Suzy Ramirez CNM [address] [place], [address], [employer] 09/05/2023 19:13:35 OBGyn Episode Ob Episode Information Episode Created Date Number of Fetuses Patient Bloodtype Patient rh Status Prepregnancy Weight lbs Domestic Partner Domestic Partner Phone Father Name Credentialing Specialist Status 03/18/20 22 1 O Positive Cayden CLOSED Fetus Data First Name Last Name Admitted to NICU Weight (g) Sex Living Outcome Pediatric Complications Fetus ID Race Codes Race Delivery Type 2891.64 9 F true Full Term [id number] Assisted VD - forceps, vacuum Problems Problem Notes Problem Name Start Date End Date Resolution Snomed Code Not e Anxiety 88578637 restart se rtraline 50mg will increase to prior dose of 75mg after one month 12058281 O+/RI/NRx3 Anatomy complete, 25%, male Gomez Calculation Initial Gomez Date Initial Exam Date Initial Exam Provider Initial Ultrasound Date Last Menstrual Period Date Ultra Sound Weeks Gestation 09/26/2022 03/18/2022 02/18/2022 12/20/2021 8 Eighteen To Twenty Week Gomez Update Ultra Sound Date Fundal Height At Umbil Quickening Date Ultra Sound Latest Weeks Gestation Final Gomez Confirmed By Final Gomez Confirmed Date Final Gomez Date Ultra Sound Latest Days Gestation 0 [email or web address] 03/18/2022 023 0 Pre-karen Flowsheet Flowsheet Date 03/18/2022 Renteria Score Blood Edema Fundus Height Fundus Units Glucose Ketones Leukocytes Nitrite Labor Signs Protein Cervic Dilation Cervic Effacement Cervic Station none none Type Weight in lbs Pre/Post Dialysis Refused Weight 125.657037473825 BP Diastolic BP Location Tested BP Systolic BP Type 62 104 Fetus Heart Rate Present A 149 Fetus Movement A Yes Comments Flowsheet Date 04/15/2022 Renteria Score Blood Edema Fundus Height Fundus Units Glucose Ketones Leukocytes Nitrite Labor Signs Protein Cervic Dilation Cervic Effacement Cervic Station none none none neg Type Weight in lbs Pre/Post Dialysis Refused Weight 120.726789151122 BP Diastolic BP Location Tested BP Systolic BP Type 50 100 sitting Fetus Heart Rate Present A 140 Fetus Movement Comments Anatomy next visit. Nausea r esolved Flowsheet Date 05/25/2022 Renteria Score Blood Edema Fundus Height Fundus Units Glucose Ketones Leukocytes Nitrite Labor Signs Protein Cervic Dilation Cervic Effacement Cervic Station none none neg Type Weight in lbs Pre/Post Dialysis Refused With clothes 129.277336266882 BP Diastolic BP Location Tested BP Systolic BP Type 60 102 sitting Fetus Heart Rate Present Fetus Movement A Yes Comments Anatomy complete, 25%, male Flowsheet Date 06/22/2022 Renteria Score Blood Edema Fundus Height Fundus Units Glucose Ketones Leukocytes Nitrite Labor Signs Protein Cervic Dilation Cervic Effacement Cervic Station 26 cm Type Weight in lbs Pre/Post Dialysis Refused Weight 136.36103911831 BP Diastolic BP Location Tested BP Systolic BP Type 80 126 Fetus Heart Rate Present A 145 Fetus Movement A Yes Comments Denies questions or concerns . PTL/PIH precautions reviewed. Discussed third trimester labs next visit. Flowsheet Date 07/22/2022 Renteria Score Blood Edema Fundus Height Fundus Units Glucose Ketones Leukocytes Nitrite Labor Signs Protein Cervic Dilation Cervic Effacement Cervic Station none 28 cm Type Weight in lbs Pre/Post Dialysis Refused Weight 140.184751578567 BP Diastolic BP Location Tested BP Systolic BP Type 76 128 Fetus Heart Rate Present A 132 Fetus Movement A Yes Comments Complains of pain under ribs , baby estela breech today. Round ligament type pains. Third trimester labs today. Recommended tdap and flu shots. Flowsheet Date 08/05/2022 Renteria Score Blood Edema Fundus Height Fundus Units Glucose Ketones Leukocytes Nitrite Labor Signs Protein Cervic Dilation Cervic Effacement Cervic Station 29 none none neg Type Weight in lbs Pre/Post Dialysis Refused With clothes 144.789533392234 BP Diastolic BP Location Tested BP Systolic BP Type 70 110 sitting Fetus Heart Rate Present A 140 Fetus Movement A Yes Comments 3rd tri labs today growth US for S<D case sent Flowsheet Date 08/19/2022 Renteria Score Blood Edema Fundus Height Fundus Units Glucose Ketones Leukocytes Nitrite Labor Signs Protein Cervic Dilation Cervic Effacement Cervic Station none 32 none Towner Mota neg Type Weight in lbs Pre/Post Dialysis Refused With clothes 152.319233618536 BP Diastolic BP Location Tested BP Systolic BP Type 70 112 sitting Fetus Heart Rate Present A 135 Fetus Movement A Yes Comments Growth with MFM 09/02 Flowsheet Date 09/02/2022 Renteria Score Blood Edema Fundus Height Fundus Units Glucose Ketones Leukocytes Nitrite Labor Signs Protein Cervic Dilation Cervic Effacement Cervic Station 36 none Mikael Mota neg 1cm 20% -3 Type Weight in lbs Pre/Post Dialysis Refused With clothes 155.31133693038 BP Diastolic BP Location Tested BP Systolic BP Type 79 120 sitting Fetus Heart Rate Present A 120 Fetus Movement A Yes Comments GBS pending Was seen in ED f or DFM, reviewed [facility] Flowsheet Date 09/09/2022 Renteria Score Blood Edema Fundus Height Fundus Units Glucose Ketones Leukocytes Nitrite Labor Signs Protein Cervic Dilation Cervic Effacement Cervic Station none 36 none Cramping neg Type Weight in lbs Pre/Post Dialysis Refused With clothes 156.089861018320 BP Diastolic BP Location Tested BP Systolic BP Type 70 110 sitting Fetus Heart Rate Present A 155 Fetus Movement A Yes Comments labor precautions reviewed Flowsheet Date 09/16/2022 Renteria Score Blood Edema Fundus Height Fundus Units Glucose Ketones Leukocytes Nitrite Labor Signs Protein Cervic Dilation Cervic Effacement Cervic Station trace Uterine Contract ions 1cm 20% -2 Type Weight in lbs Pre/Post Dialysis Refused With clothes 155.996338898434 BP Diastolic BP Location Tested BP Systolic BP Type 64 L arm 116 sitting Fetus Heart Rate Present A 132 Fetus Movement A Yes Comments No OB concerns. F/u one week . Pt requested SVE - no change from previous exam. irregular contractions throughout day Menstrual History Last Menstrual Date Menses Monthly On Bcp Conception Prior Menses Frequency Hcg Plus Date Menarche Onset Age 0512/20/2021 Genetic Screening And Infection History Question Response Note Recent Travel History Outside of Country false Cystic Fibrosis false Any Other Genetic History false Jose Disease false Other Infection History false Thalassemia (Azerbaijani, Yoruba, Mediterranean, Or Background): MCV < 80 false Patient Or Baby's Father Had A Child With Defects Not Listed Above false Live With Someone With TB Or Exposed To TB false Patient's Age Will Be 35 Years Or Older At Estim ated Date of Delivery false Recurrent Loss, Or A Stillbirth false Hemoglobinopathy Or Carrier false Patient Or Partner Has History Of Genital Herpes false Intellectual Disability/Autism false Maternal Metabolic Disorder (eg, Type 1 Diabetes , PKU) false History of Hepatitis false Armin-Sachs (eg, Taoist, Cajun, Stateless-Lakehead) f alse History Of STD, Gonorrhea, Chlamydia, HPV, Syphi lis false Prior GBS-infected child false History of HIV false Personal or Family History o f Neural Tube Defect (Meningomyelocele, Spina Bifida, Or Anencephaly) false Hemophilia Or Other Blood Disorders false Mental Retardation/Autism false Mona's Chorea false If Yes, Was Person Tested For Fragile X? false Other Inherited Genetic Or Chromosomal Disorder false If Yes, Agent(s) And Strength/Dosage false Sickle Cell Disease Or Trait () false Personal or Family History of Congenital Heart D efect false Rash Or Viral Illness Since Last Menstrual Perio d false Muscular Dystrophy false Medications (including Suppl ements, Vitamins, Herbs, OTC Drugs), Illicit/Recreational Drugs, Alcohol false Other Structural Defect false Down Syndrome false Delivery Information Delivery Date Delivery Type Labor Anesthesia Weeks Gestation Incision Type Labor Labor Length Hrs Delivered By Post Complications Tubal Sterilization Discharge Date Comments 3 [facility] idural 38.6 Jacqueline Johnson MD 09/20/2022 Discharge Information Feeding Method Contraceptive Method Maternal HG B and HCT Levels Ob Episode Information Episode Created Date Number of Fetuses Patient Bloodtype Patient rh Status Prepregnancy Weight lbs Domestic Partner Domestic Partner Phone Father Name Credentialing Specialist Status 09/05/19 24 1 CLOSED Fetus Data First Name Last Name Admitted to NICU Weight (g) Sex Living Outcome Pediatric Complications Fetus ID Race Codes Race Delivery Type [id number] Problems Problem Notes Problem Name Start Date End Date Resolution Snomed Code Not e Vacuum assisted vaginal delivery [id number] in G1 Nausea [id number] eRX for Zo kaitlin Gomez Calculation Initial Gomez Date Initial Exam Date Initial Exam Provider Initial Ultrasound Date Last Menstrual Period Date Ultra Sound Weeks Gestation 2024 09/05/2023 08/04/2023 06/21/2023 7 Eighteen To Twenty Week Gomez Update Ultra Sound Date Fundal Height At Umbil Quickening Date Ultra Sound Latest Weeks Gestation Final Gomez Confirmed By Final Gomez Confirmed Date Final Gomez Date Ultra Sound Latest Days Gestation 0 [email or web address] 09/05/2023 024 0 Pre-karen Flowsheet Flowsheet Date 09/03/2023 Renteria Score Blood Edema Fundus Height Fundus Units Glucose Ketones Leukocytes Nitrite Labor Signs Protein Cervic Dilation Cervic Effacement Cervic Station Type Weight in lbs Pre/Post Dialysis Refused With clothes 116.869506258228 BP Diastolic BP Location Tested BP Systolic BP Type 64 L arm 118 sitting Fetus Heart Rate Present A 163 Fetus Movement Comments Oriented to practice, Prenat al guide given, IOB labs-Declines [place] Menstrual History Last Menstrual Date Menses Monthly On Bcp Conception Prior Menses Frequency Hcg Plus Date Menarche Onset Age 896/21/2023 Genetic Screening And Infection History Question Response Note Personal or Family History of Congenital Heart D efect false History of Hepatitis false Muscular Dystrophy false Sickle Cell Disease Or Trait () false Patient Or Partner Has History Of Genital Herpes false Hemophilia Or Other Blood Disorders false Jose Disease false Patient's Age Will Be 35 Years Or Older At Estim ated Date of Delivery false If Yes, Agent(s) And Strength/Dosage false Medications (including Suppl ements, Vitamins, Herbs, OTC Drugs), Illicit/Recreational Drugs, Alcohol false Other Structural Defect false Recent Travel History Outside of Country false Maternal Metabolic Disorder (eg, Type 1 Diabetes , PKU) false Armin-Sachs (eg, Taoist, Cajun, Stateless-L[place]) f alse Other Infection History false [place]'s Chorea false Cystic Fibrosis false Recurrent Loss, Or A Stillbirth false Rash Or Viral Illness Since Last Menstrual Perio d false Live With Someone With TB Or Exposed To TB false Mental Retardation/Autism false If Yes, Was Person Tested For Fragile X? false History of HIV false Any Other Genetic History false Hemoglobinopathy Or Carrier false Prior GBS-infected child false Down Syndrome false Other Inherited Genetic Or Chromosomal Disorder false Patient Or Baby's Father Had A Child With Defects Not Listed Above false Personal or Family History o f Neural Tube Defect (Meningomyelocele, Spina Bifida, Or Anencephaly) false History Of STD, Gonorrhea, Chlamydia, HPV, Syphi lis false Thalassemia (Azerbaijani, Yoruba, Mediterranean, Or Background): MCV < 80 false Intellectual Disability/Autism false Delivery Information Delivery Date Delivery Type Labor Anesthesia Weeks Gestation Incision Type Labor Labor Length Hrs Delivered By Post Complications Tubal Sterilization Discharge Date Comments Discharge Information Feeding Method Contraceptive Method Maternal HG B and HCT Levels
== END 2025-05-23 14:18 | disposition home or self-care (01) ==
LOC: ANHAUDIO 14:17
PROVIDERS: PCP Otolaryngology; Visit Provider Otolaryngology
DX: H69.91 Unspecified Eustachian tube disorder, right ear (principal); H65.491 Other chronic nonsuppurative otitis media, right ear
CPT/HCPCS: 92557; 92567

== ENCOUNTER 2025-06-25 07:44 | Outpatient (CLI) | payer OTHER, SELFPAY ==
--- NOTE | ~2025-06-25 | CT_ITS ---
EXAMINATION: CT soft tissue neck w con DATE: 06/25/2025 08:19 INDICATION: Other specified disorders of bone. TECHNIQUE: Computed tomography (CT) of the neck was performed with 75 mL Omnipaque-350 intravenous contrast. Automated exposure control and iterative reconstruction technique were employed. The dose-length product was 379.27 mGy-cm. COMPARISON: None FINDINGS: The adenoids are enlarged. The larynx is normal. There are no pathologically enlarged lymph nodes. The cervical carotid arteries are normal. There is a small right mastoid effusion. There is mild mucosal thickening in the paranasal sinuses. The orbits are normal. There is mild cervical spondylosis. Cervical kyphosis is noted. IMPRESSION: 1. Enlarged adenoids. Reviewed, dictated and finalized at location E. [employer] IMPRESSION: 1. Enlarged adenoids.
--- OUTSIDE RECORDS SUMMARY | 2025-06-25 07:51 | XMS_ITS | Clinical Summary ---
Author Organization [facility] Address [address] [place] [address] Care Team Providers Care Test Data Developer Name Role Phone Zafar Weston MD Primary Care Provider [phone] Source Comments [facility]non-owned Affiliates and Associated Physician Practices is amultiple site organization consisting of ambulatory clinics and hospital sitesin [place], [place], [place] and [place]. This disclosure is being madepursuant to the Care Everywhere program and may not contain all information available regarding this patient. Last updated 18.[facility] Allergies No known active allergies Medications * [...] PM CDT Legal Sex Female 5:45 AM [facility] Gender Identity Female 03/26/2022 11:22 PM CDT [...] DEPRESSION SCREENING 07/25/2024 COVID-19 VACCINE ( - 2024- season) 2025 INFLUENZA VACCINE (#1) 2025 8, [...] patient's age to complete this topic Insurance [facility] [employer] [facility] Care Address: [id number] [place] [id number] [facility] Care Address: [address] [address] [facility] Care Teams Test Data Developer Relationship Specialty Start Date End Date Zafar Weston MD [address] [facility] [place] [place] [address] PCP - General 01/28/20
--- OUTSIDE RECORDS SUMMARY | 2025-06-25 07:51 | XMS_ITS | Clinical Summary ---
Author Organization [facility] Address [facility] [place] [address] Care Team Providers Care Lifts And Cranes Inspector Name Role Phone None, Provider MD Primary [...] In the past 12 months has e [employer], [email or web address], oil, or water compropago threatened to shut off services in your [...] often do you attend chur ch or jew services? Never 03/03/2024 Do you belong to any clubs o r organizations such as zoroastrian groups, unions, fraternal or athletic groups, or [...] Recorded Patient Health Questionnaire-2 Score 0 03/03/2024 [facility] - Occupational Stress Questionnaire Answer Date [...] any time in the past 12 m [facility], were you homeless or living in a prison (including now)? No 03/03/2024 Depression Answer Date [...] 12:20 AM 09/20/2022 4:44 PM Care Teams Lifts And Cranes Inspector Relationship Specialty Start Date End Date None, ProviderMD PCP - General UNKNOWN PHYSICIAN SPECIALTY 07/05/22 None, MD Aline 07/05/22
== END 2025-06-25 07:45 | disposition home or self-care (01) ==
PROVIDERS: Visit Provider Otolaryngology
DX: J35.1 Hypertrophy of tonsils (principal); J35.2 Hypertrophy of adenoids; M89.8X8 Other specified disorders of bone, other site; H65.491 Other chronic nonsuppurative otitis media, right ear
CPT/HCPCS: 70491; Q9967